=== PATIENT | male | born 2000 | race Caucasian/White ===

== ENCOUNTER 2024-05-24 00:32 | Observation (INO) | payer MEDICARE, SELFPAY ==
[2024-05-23 20:34] VITALS: BP 141/81
[2024-05-23 22:36] VITALS: BMI 22.4
--- NOTE | 2024-05-23 22:53 | ED.GENMED ---
History of Present Illness
General
Chief Complaint: Skin Problem
Source: patient
Exam Limitations: none
Time Seen by Provider: 05/23/24 21:49
Nursing documentation reviewed up to this point in time: agreed with
History of Present Illness
History of Present Illness:
43-year-old male presenting to the emergency department today with concerns of worsening infection to left knee. Diagnosed with knee infection yesterday by his primary care doctor was started on Bactrim took 3 total doses spanning roughly 24 hours.
Noticed increasing redness and swelling in the local area just above the knee anteriorly with now streaking redness to his groin. Denies specific fevers chest pain shortness of breath nausea vomiting.
Review of Systems
Review of Systems
Allergies reviewed?: Yes
All Other Systems: ROS reviewed and negative except as documented in HPI and ROS
Phy Exam
Physical Exam
Physical Exam:
GENERAL: Alert , in no apparent distress
EYE: pupils equal and reactive
NECK: Supple, no significant adenopathy.
ENT: o/p clr, mmm.
CARDIAC: Regular rate and rhythm .
LUNGS: Clear breath sounds bilaterally, no acute respiratory distress, no wheezes/rales/rhonchi
ABDOMEN: Soft, without focal tenderness, no r/g, no cvat
NEUROLOGICAL: Alert and oriented, no focal neuro deficits
SKIN: Significant redness swelling and warmth to the area in the suprapatellar region anteriorly there is a central area of induration of roughly 3 cm in diameter fluctuant with some spontaneous purulent drainage. There is a surrounding redness and
warmth roughly 10 cm in diameter surrounding the area and any streaking redness that is moving all the way to the patient's left groin anteriorly. Warm and dry, skin intact.
MUSCULOSKELETAL: No edema, well perfused.
PSYCH: Normal and appropriate interaction.
Course
Orders/Labs/Results
Orders:
Orders
05/23/24 22:45
Vancomycin [Vancocin] 1,250 mg 0.9% Sodium Chloride 250 ml [Nss] 250 ml IV NOW
05/23/24 22:49
BMP [Basic Metabolic Panel] Urgent
CBC/With Diff [Complete Blood Count/With Diff] Urgent
05/23/24 22:50
Wound Culture [Wound/Abscess/Other Culture] Urgent
NIKKO Source: Abscess
Specimen Description:
Date Specimen was Collected: 05/23/24
Time Specimen was Collected: 22:49
05/24/24 00:09
Admit/Transfer Patient As Directed
Co-Sign Provider:
Level of Care: Observation services
Assign to:: Medical/Surgical
Physician / Group: hospitalist
Diagnosis: cellulitis
05/24/24 00:10
Code Status As Directed
Resuscitation Status: Full Code
PRN Pain Medication Management As Directed
May give lesser potent ordered pain med per pt: Yes
preference::
Protocol:: Medication orders for pain may be administered in a
manner that supports deferring to patient preference
when the pt is:
- Requesting an ordered lesser potent pain medication.
Least to most potent pain medications are defined
as: acetaminophen < NSAID < tramadol < opioids
(morphine, oxycodone, hydromorphone).
- Requesting a lesser dose of the same medication IF
ORDERED.
- Requesting a less intrusive route of administration
if both routes are prescribed by the provider (PO <
IV).
05/24/24 00:53
Acetaminophen [Tylenol] 650 mg PO Q4HPRN PRN
Albuterol [ProAIR HFA INHALER] 2 puff INH R Q4HPRN PRN
Docusate W/Senna [Senokot-S] 1 tablet PO BIDPRN PRN
Ketorolac [Toradol] 10 mg IV Q6HPRN PRN
Ondansetron Injectable [Zofran] 4 mg IV Q6HPRN PRN
05/24/24 00:53
Activity As Directed
Activity Level: With Assistance
Vital Signs As Directed
Frequency: Per unit guidelines
DX Deep Vein Thrombosis Video Routine
05/24/24 Breakfast
Regular
At Your Request: Full Participation
05/24/24 06:10
Complete Blood Count/No Diff IN AM
05/24/24 18:00
Enoxaparin Sodium [Lovenox] 40 mg SC QPM
Abnormal Lab Results
05/23/24
22:49
WBC 13.4 H 10^3/uL
(4.8-10.8)
Absolute Neuts (auto) 8.9 H 10^3/uL
(1.4-6.5)
Absolute Monos (auto) 1.3 H 10^3/uL
(0.1-0.6)
Lymphocytes % 18.1 L %
(20.5-51.1)
Monocytes % 9.7 H %
(1.7-9.3)
BUN 24 H mg/dl
(9-20)
05/23/24 22:49
05/23/24 22:49
Vital Signs
Initial and Last Documented VS:
Initial Vital Signs
Temp Pulse Resp BP Pulse Ox
98.2 F 76 18 141/81 100
05/23/24 20:34 05/23/24 20:34 05/23/24 20:34 05/23/24 20:34 05/23/24 20:34
Last Documented Vital Signs
Temp Pulse Resp BP Pulse Ox
98.2 F 54 18 136/66 98
05/23/24 20:34 05/24/24 00:28 05/24/24 00:28 05/24/24 09:01 05/24/24 00:28
MDM/Problems Addressed
MDM/Problems Addressed:
23-year-old male presenting to the emergency department today with concerns of worsening infection to the area just above the left knee. 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 Started on Bactrim and took 3 total doses spanning
roughly 24 hours since yesterday but has had significant worsening of the localized region. Denies systemic symptoms or fevers. Here there is significant surrounding redness and swelling to the left suprapatellar region, now streaking to the
groin. Considering his significant increasing of symptoms plan to admit for monitoring overnight. Patient started on vancomycin here.
*Critical Care Note
Total Time (30-74mins, 75-104mins- exclusive of procedures): Not Applicable
ED Attending Note
-
Portions of this chart may have been created with voice recognition software.� Occasional wrong word or��sound alike� substitutions may have occurred due to the inherent limitations of voice recognition software.
Discharge Plan
Departure
Patient Disposition: Admit
Date of Disposition: 05/23/24
Time of Disposition: 23:37
Admit to: Med/Surg
Admit to doctor: Mariajose
Presentation/result/management discussed w/ accepting MD/DO: Hospitalist
Patient with high blood pressure during this ER visit?: No
Condition: Good
Covid-19: Not Applicable
Discharge Problem:
Cellulitis of leg
Interventions
Interventions:
*Risk Screen - Suicide Last Done: 05/23/24 20:34
*General Assessment Last Done: 05/23/24 20:34
*Neglect/Abuse Screening Last Done: 05/23/24 20:34
ED- Fall Risk Assessment Last Done: 05/24/24 07:26
*ED COVID-19 Vaccine History Last Done: 05/23/24 20:34
*Nursing Disposition Last Done: 05/24/24 10:28
ED-Skin Assessment Last Done: 05/23/24 22:23
Discharge Date and Time
Discharge Date/Time: 05/24/24 10:29
[2024-05-23 23:04] LABS: % Eosinophils 4.4 % (0-6); % Immature Granulocytes 0.3 % (0-0.5); % Lymphocytes 18.1 % (20.5-51.1); % Monocytes 9.7 % (1.7-9.3); % Neutrophils 66.5 % (42.2-75.2); Absolute Basophils 0.1 10^3/uL (0-0.2); Absolute Eosinophils 0.6 10^3/uL (0-0.7); Absolute Lymphocytes 2.4 10^3/uL (1.2-3.4); Absolute Monocytes 1.3 10^3/uL (0.1-0.6); Absolute Neutrophils 8.9 10^3/uL (1.4-6.5); Hematocrit 44.1 % (39.0-52.0); Hemoglobin 15.3 g/dL (13.0-18.0); Mean Corp Hgb Conc. 34.7 g/dL (33.0-37.0); Mean Corpuscular Hgb 30.4 pg (27.0-31.0); Mean Corpuscular Volume 87.7 fL (80.0-94.0); Mean Platelet Volume 10.1 fL (7.4-10.4); Nucleated Red Blood Cells % 0 % (-); Platelet Count 224 10^3/uL (130-400); Red Blood Cell Count 5.03 10^6/uL (4.70-6.10); Red Cell Dist. Width 11.9 % (11.5-14.5); White Blood Cell Count 13.4 10^3/uL (4.8-10.8)
[2024-05-23 23:06] VITALS: BP 131/74
[2024-05-23 23:13] LABS: Blood Urea Nitrogen 24 mg/dl (9-20); Calcium 9.5 mg/dl (8.4-10.2); Carbon Dioxide 27 mmol/L (22-30); Chloride 100 mmol/L (98-107); Estimated Creatinine Clearance 85 ml/min; Glucose 94 mg/dl (70-99); Potassium 3.9 mmol/L (3.5-5.1); Sodium 138 mmol/L (135-145); eGFR > 60.00
--- NOTE | 2024-05-23 23:43 | PHANOTE ---
med rec tech(05/23/24)-Due to time of day, unable to call pharmacy or doctor's office to confirm Flovent dosage.
[2024-05-23] MEDS: VANCOCIN 275 MG IV (23:50)
[2024-05-24 00:28] VITALS: BP 133/60
--- NOTE | 2024-05-24 00:45 | HPS.HSE ---
Family Physician
-
Family Physician: Dionna Humphries
Chief Complaint
-
Left knee pain and swelling
History of Present Illness
This is a 23-year-old with past medical history significant for asthma presenting to the emergency department with left leg cellulitis.
Patient reported that it had follicle developed on the superior part of the left patella. He said this posted and then he started to develop redness. He was started on oral Bactrim twice daily. He took 3 doses of that. Today he reported that he
had increasing redness that is tracking up his left thigh medially. No fevers or chills at home. Due to worsening symptoms he came to the emergency department.
In the ED he was afebrile, blood pressure was 131/74 with a pulse of 54. He did have a leukocytosis to 13,000.
And there was a bedside I&D done with removal of a small amount of purulent material.
Medical History
Past Medical History
Past Medical History: Reports Asthma
Past Surgical History: Reports None
Social History
Tobacco: Non-smoker
Alcohol: None
Drug: None
Personal: Single
Living: With Family
Family History
Family History: Not pertinent
Allergies / Home Medications
Allergies reflects when Allergies were last updated in [facility].
Home Medications with original date entered in [facility]
Allergy/Medication List:
Allergies
Allergy/AdvReac Type Severity Reaction Status Date / Time
nut - unspecified Allergy Anaphylaxis Verified 05/23/24 20:35
Home Medications
Flovent 1 puff inhalation R BID 05/23/24
albuterol sulfate 90 mcg/actuation aerosol inhaler 2 puff inhalation R Q4HPRN PRN sob/wheezing 05/23/24
ibuprofen 200 mg tablet 400 mg PO Q6HPRN PRN mild pain 05/23/24
sulfamethoxazole 800 mg-trimethoprim 160 mg tablet 1 tab PO BID 05/23/24
Review of Systems
-
History Source: Patient
Constitutional: Reports No Symptoms
EENT: Reports No Symptoms
Respiratory: Reports No Symptoms
Cardiac: Reports No Symptoms
Abdomen/GI: Reports No Symptoms
: Reports No Symptoms
Musculoskeletal: Reports No Symptoms
Skin: Reports No Symptoms
Neurological: Reports No Symptoms
Endocrine: Reports No Symptoms
Hematologic/Lymphatic: Reports No Symptoms
Psych: Reports No Symptoms
Physical Exam
Vital Signs
Vital Signs
Temp Pulse Resp BP Pulse Ox
98.2 F 54 18 133/60 98
05/23/24 20:34 05/24/24 00:28 05/24/24 00:28 05/24/24 00:28 05/24/24 00:28
Physical Exam
General: Well Developed, Well Nourished, No Apparent Distress and Comfortable
HEENT: NormoCephalic, Anicteric, Moist mucous membranes and Atraumatic
Respiratory: Clear
Cardiac: S1/S2 and Regular Rhythm
Breast: Deferred by me
GI: Soft, Non Tender and Non Distended
Rectal: Deferred by Provider
Genito-urinary: Deferred by me
Musculoskeletal: No Clubbing, No Cyanosis and No Edema
Skin: Other (erythema from the patella tracking up about 10 cm to the medial left thigh)
Neuro: AO x 3
Hematologic/Lymphatic: No Lymphadenopathy
Psych: Calm
Laboratory Results
-
05/23/24 22:49
05/23/24 22:49
Data Reviewed
-
Lab Data: Labs Reviewed by me
Old Records: Reviewed
Impression/Plan
-
IMPRESSION:
Purulent cellulitis likely did not respond to bactrim because of abscess formation. Non-toxic appearing but apparent lymphangitic spread.
PLAN:
Cellulitis
- admit to med/surg obs
- fluid culture sent
- iv vancomycin for now
- serial examination
- pain control
- dvt ppx with lovenox sq
Code status - full code
[2024-05-24 01:00] VITALS: BP 140/70
[2024-05-24 06:30] LABS: Hematocrit 43.2 % (39.0-52.0); Hemoglobin 14.8 g/dL (13.0-18.0); Mean Corp Hgb Conc. 34.3 g/dL (33.0-37.0); Mean Corpuscular Hgb 30.5 pg (27.0-31.0); Mean Corpuscular Volume 89.1 fL (80.0-94.0); Mean Platelet Volume 10.5 fL (7.4-10.4); Platelet Count 201 10^3/uL (130-400); Red Blood Cell Count 4.85 10^6/uL (4.70-6.10); Red Cell Dist. Width 11.9 % (11.5-14.5); White Blood Cell Count 9.9 10^3/uL (4.8-10.8)
--- NOTE | 2024-05-24 08:38 | PHA.VAN.IN ---
Assessment
- Assessment
Renal Function: Unknown baseline
Maximum Temperature: 98.2
AUC Dosing Plan
- Dosing Variables
Dosing Weight (kg): 66.7
Dosing CrCl (ml/min): 85
Vd coefficient (L/kg): 0.7
- Empiric Dosing
Initial / Loading Dose: 1250 mg (19 mg/kg) 05/23 2350
Maintenance Regimen: vanc 500 mg q8h
Estimated AUC (mcg*h/mL): 445
Estimated Peak (mcg*h/mL): 23.7
Estimated Trough (mcg/ml): 14.1
Estimated Half Life (H): 9.2
Initial interval shorter that PK-population estimated half-life based on patients age and expected increased clearance.
- Monitoring
No levels ordered at this time: consider levels in upcoming days
Pharmacokinetics Vancomycin I
- -
Patient Age: 23
Patient Sex: Male
Vancomycin Day #: 1
Indication: Skin And Soft Tissue (LE purluent abscess)
Requesting Provider: Dr Billy
Pertinent Antimicrobial Allergies:
no pertinent allergies
Height / Weight:
Height 5 ft 8 in
Actual Weight 66.678 kg
Pertinent Past Medical History: asthma; i/d of abscess on admission
- Vital Signs / Lab Results
Temp Pulse Resp BP Pulse Ox
98.2 F 54 18 140/70 98
05/23/24 20:34 05/24/24 00:28 05/24/24 00:28 05/24/24 01:00 05/24/24 00:28
Lab Results - Hematology
05/23/24 05/24/24
22:49 06:10
WBC 13.4 H 9.9
Lab Results - Chemistry
05/23/24
22:49
BUN 24 H
Creatinine 1.3
Estimated Creat Clear 85
[2024-05-24 09:01] VITALS: BP 136/66
[2024-05-24] MEDS: VANCOCIN HCL 500 MG 100 IV (09:29)
--- NOTE | 2024-05-24 09:42 | W.PN.HOSP.TC ---
Today's Communication/Plan
-
Discharge
Assessment / Plan
Assessment / Plan
Gen-AAOx3, NAD
HEENT-NC, AT, anicteric, clear oral mm
Neck-supple
CV-reg, no M, +S1/S2
Lungs-clear B/L
Abd-soft, NT, ND
Ext-no edema
Musculoskeletal-no cyanosis, clubbing
Skin-warm and dry, left knee abscess with minimal drainage, mild lymphangitic streaking of left medial thigh
Neuro-grossly non-focal
Psych-calm, cooperative
Left lower extremity cellulitis/abscess -improving. Can discharge home on Bactrim double strength. He has enough tablets at home. Follow-up with PCP. Patient denies history of MRSA infections. 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 Finish course of antibiotics.
Mild intermittent asthma -stable.
Full code
Dispo - medically stable for discharge.
Anticipated Discharge: Today
Subjective/Interval History
-
Date of Service: May 24, 2024
Patient seen and examined, no complaints.
Objective Data
-
Labs:
Laboratory Results
05/23/24 05/24/24
22:49 06:10
WBC 13.4 H 9.9
Hgb 15.3 14.8
Hct 44.1 43.2
Plt Count 224 201
Sodium 138
Potassium 3.9
Chloride 100
Carbon Dioxide 27
BUN 24 H
Creatinine 1.3
Glucose 94
Calcium 9.5
Vital Signs:
Vital Signs
Temp Pulse Resp BP Pulse Ox
98.2 F 54 18 136/66 98
05/23/24 20:34 05/24/24 00:28 05/24/24 00:28 05/24/24 09:01 05/24/24 00:28
Review of Systems
-
History Source: Patient
All other systems: Reviewed and negative
--- NOTE | 2024-05-24 09:45 | W.DS.TRANS ---
DC Summary - Toby Maker
-
Discharge Instructions:
Discharge Diagnosis/Procedures Left lower extremity cellulitis, abscess
Diet Regular
Activity As tolerated
Driving Restrictions As prior to admission
Bathing Restrictions None
Instructions:
Stand-Alone Forms:
Changes to Home Medications: No
Discharge Medications:
DC Medications w/original date entered in [facility]
Flovent 1 puff inhalation R BID 05/23/24
albuterol sulfate 90 mcg/actuation aerosol inhaler 2 puff inhalation R Q4HPRN PRN sob/wheezing 05/23/24
ibuprofen 200 mg tablet 400 mg PO Q6HPRN PRN mild pain 05/23/24
sulfamethoxazole 800 mg-trimethoprim 160 mg tablet 1 tab PO BID 05/23/24
Home Medication Changes
Pending Results: No
== END 2024-05-24 10:15 | disposition left against medical advice (07) ==
LOC: ED 00:32
PROVIDERS: Physician Assistant; ADMITTING PHYSICIAN Internal Medicine; ATTENDING PHYSICIAN Hospitalist; EMERGENCY PHYSICIAN Emergency Medicine; FAMILY PHYSICIAN Pediatrics
DX: L03.116 Cellulitis of left lower limb (principal); M25.462 Effusion, left knee; L02.416 Cutaneous abscess of left lower limb; J45.20 Mild intermittent asthma, uncomplicated; Z79.51 Long term (current) use of inhaled steroids; Z91.018 Allergy to other foods; Z86.14 Personal history of Methicillin resistant Staphylococcus aureus infection
CPT/HCPCS: 80048; 85025; 85027; 87070; 87147; 87205; G0378